=== PATIENT | male | born 1990 | race Caucasian/White ===

== ENCOUNTER 2016-09-30 18:26 | Emergency (ER) | payer OTHER ==
[~2016-09-30 18:26] MED LIST: METH500T PO
[2016-09-30 18:31] VITALS: BP 147/83; PULSE 103; RESP 20; O2SAT 99
--- NOTE | 2016-09-30 18:57 | DRSVH ---
PROCEDURE: X-RAY RIGHT WRIST COMPLETE, MINIMUM THREE VIEWS ([id number]) INDICATIONS: injury, pain TECHNIQUE: 4 views of the wrist were acquired. COMPARISON: [facility], CR, XR BILAT WRIST MIN 3VW, 03/17/2016, 20:25. FINDINGS: Bones: No fractures or dislocations. No suspicious bony lesions. Scaphoid view: Scaphoid is intact Soft tissues: No suspicious soft tissue calcifications. IMPRESSION: No fracture. No osseous lesion. If there are persistent symptoms or clinical suspicion f or pathology, then repeat radiographs or advanced imaging (CT, MRI or bone scan) should be considered for further evaluation. Dictated by: Taylor Mccann MD, PhD on 09/30/2016 at 18:55 Approved by: Taylor Mccann MD, PhD on 09/30/2016 at 18:56
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
== END 2016-09-30 20:08 | disposition home or self-care (01) ==
LOC: SED 18:26
DX: S63.501A Unspecified sprain of right wrist, initial encounter (principal); V19.00XA Pedal cycle driver injured in collision with unspecified motor vehicles in nontraffic accident, initial encounter; Y93.55 Activity, bike riding; Y92.9 Unspecified place or not applicable; Y99.9 Unspecified external cause status